=== PATIENT | male | born 1990 | race Caucasian/White ===

== ENCOUNTER 2017-08-05 12:05 | Emergency (ER) | payer MEDICAID ==
[~2017-08-05] VITALS: Ht 188 cm; Wt 85.9 kg
[2017-08-05 12:35] LABS: BASOPHILS % (AUTO) 0.4 % (0-1); EOSINOPHILS # (AUTO) 0.2 X10'3 (0-0.9); EOSINOPHILS % (AUTO) 2.2 % (0-6); HEMATOCRIT 47.9 % (42.0-52.0); HEMOGLOBIN 16.2 g/dl (14.0-17.9); LYMPHOCYTES # (AUTO) 3.1 X10'3 (1.1-4.8); LYMPHOCYTES % (AUTO) 30.9 % (21-51); MEAN CORPUSCULAR HEMOGLOBIN 28.8 PG (27.0-31.0); MEAN CORPUSCULAR HGB CONC 33.9 % (33.0-36.5); MEAN CORPUSCULAR VOLUME 84.9 FL (78-98); MEAN PLATELET VOLUME 7.4 FL (7.4-10.4); MONOCYTES # (AUTO) 0.6 X10'3 (0-0.9); NEUTROPHILS # (AUTO) 6.1 X10'3 (1.8-7.7); NEUTROPHILS % (AUTO) 60.5 % (42-75); PLATELET COUNT 278 X10'3 (140-440); RED BLOOD COUNT 5.65 X10'6 (4.70-6.10); RED CELL DISTRIBUTION WIDTH 12.9 % (11.5-14.5); WHITE BLOOD COUNT 10.1 X10'3 (4.5-11.0)
[2017-08-05 12:49] LABS: ALANINE AMINOTRANSFERASE 141 U/L (12-78); ALBUMIN 3.8 G/DL (3.4-5.0); ALKALINE PHOSPHATASE 126 IU/L (46-116); ANION GAP 5 (8-16); ASPARTATE AMINO TRANSFERASE 80 U/L (10-37); BILIRUBIN,TOTAL 0.5 MG/DL (0.1-1.0); BLOOD UREA NITROGEN 17 MG/DL (7-18); CALCIUM 9.3 MG/DL (8.5-10.1); CHLORIDE 104 MMOL/L (99-107); GLUCOSE 122 MG/DL (70-104); LIPASE 75 U/L (73-393); SODIUM 143 MMOL/L (135-145); TOTAL CARBON DIOXIDE 33.7 MMOL/L (24-32); TOTAL PROTEIN 7.7 G/DL (6.4-8.2); eGFR 89 ML/MIN
[2017-08-05 14:17] LABS: CLARITY,URINE CLEAR (Clear); COLOR,URINE YELLOW (Yellow); GLUCOSE, URINE NEGATIVE (Neg); KETONES,URINE TRACE mg/dl (Neg); LEUKOCYTE ESTERASE ,URINE NEGATIVE (Neg); NITRITES, URINE NEGATIVE (Neg); OCCULT BLOOD,URINE NEGATIVE (Neg); PROTEIN,URINE NEGATIVE (Neg)
[2017-08-05 14:21] LABS: UA COLLECTION TYPE CLN CATCH MIDSTREAM
[2017-08-05 14:56] VITALS: BP 125/69
== END 2017-08-05 14:58 | disposition home or self-care (01) ==
LOC: ER 12:05
DX: L02.416 Cutaneous abscess of left lower limb (principal); R10.9 Unspecified abdominal pain; B34.9 Viral infection, unspecified; R94.5 Abnormal results of liver function studies
CPT/HCPCS: 36415; 80053; 81003; 83690; 85025; 99284

== ENCOUNTER 2024-11-27 16:46 | Emergency (ER) | payer MEDICAID ==
[~2024-11-27] VITALS: Ht 188 cm; Wt 86.4 kg
[2024-11-27 16:50] VITALS: BP 127/82; PULSE 96; RESP 18; TEMP 97.8; O2SAT 98
--- NOTE | 2024-11-27 17:06 | Physician Documentation ---
History of Present Illness ~ Chief Complaint: Foreign body Stated Complaint: MED CLEARANCE Time Seen by MD: 16:50 Primary Medical Doctor: [facility] HPI 34-year-old male presents to the ED via [facility] for concerns over potential foreign body in the rectal area. [facility] indicates that during their scan they made note of an unknown object while aproximally the size of a walnut. Denies having any drugs or any other objects in his rectum Day of Onset: November 27, 2024 Medication Reconciliation Allergies: Coded Allergies: tramadol (Unverified Allergy, Unknown, 11/27/24) Past Medical History Past Medical History: MRSA Abscess Past Surgical History: noncontributory Alcohol Use: None Lives In: Home Review of Systems All Other Systems at this time: Reviewed and Negative ROS As stated above in the HPI, otherwise all systems are reviewed and negative. Physical Exam Vital Signs: Temperature: 97.8, Source: Temporal, Heart Rate: 96, Respiratory Rate: 18, BP: 127/82, Pulse Oximetry: 98, Weight: 86.360 Physical Exam General: Alert, no apparent distress. Respiratory: Lungs clear, no respiratory distress. Cardiovascular: Regular rate and rhythm, no murmurs. Gastrointestinal: Soft, nontender, nondistended. Bowels sounds present. Neurologic: Oriented x4. Psychiatric: Normal mood and affect. Skin: Normal color, warm and dry. No edema, no ecchymosis. Progress Results/Orders Results/Orders Orders - ARIAN BRENNER NP Ct Abdomen Pelvis (11/27/24 17:05) Completed Orders - ARIAN BRENNER NP Ct Abdomen Pelvis (11/27/24 17:05) Vital Signs 11/27/24 16:50 Temp 97.8 Pulse 96 Resp 18 B/P (MAP) 127/82 Pulse Ox 98 Medical Decision Making Findings no evidence of foreign body in CT. Safe to discharge at this time. patient is medically cleared for fdc Departure Disposition: HOME / SELF CARE / HOMELESS Impression: Primary Impression: General medical exam Additional Instructions: Medically cleared for fdc. Evaluated for foreign body in the rectal vault there was no evidence of any foreign bodies Referrals: NO PRIMARY CARE PROVIDER (PCP) Education Educated: Patient Educated regarding: diagnosis Signature Scribe Signature: t Attestation: The note accurately reflects work and decisions made by me.Arian Thomas NP 23:52 ARIAN BRENNER NP November 27, 2024 17:06
--- NOTE | 2024-11-27 17:27 | RADIOLOGY REPORT ---
Exam: CT CT ABDOMEN PELVIS History: FB Comparison Study: None TECHNIQUE: Multidetector CT of the abdomen and pelvis without IV contrast. Axial, coronal and sagitta l multiplanar reformats were obtained from the axial data set by the technologist. Radiation Dose Information: CT Dose: CTDI volume is 17.5 mGy. Dose-length product is 972.15 mGy*cm FINDINGS: The lung bases are clear. Partially visualized heart is unremarkable. Liver, spleen, gallbladder, pancreas and adrenal glands unremarkable. Punctate nonobstructing bilateral renal calculi.. No hydro nephrosis bilaterally. Bilateral ureters a nd urinary bladder unremarkable. Prostate is unremarkable. Stomach is unremarkable. Small bowel loops unremarkable. Retrocecal appendix is visualized measuring up to 7 mm with mild adjacent fat stranding. Moderate to amount of fecal material within the colon. No evidence of intraperitoneal free air or free fluid. No evidence of aortic aneurysm. Slightly prominent right lower abdominal quadrant lymph nodes measuring up to 0.8 cm which may be janes ctive. Minimal pelvic and hip body wall edema. Sclerotic focus of the left femoral head and left iliac bone which may represent bone islands blastic lesions not excluded. IMPRESSION: No obvious foreign body is visualized. Appendix is retrocecal measuring up to 7 mm with minimal adjacent fat stranding. Correlate for possib le acute appendicitis. Moderate to large amount of fecal material within the colon.
== END 2024-11-27 17:57 | disposition home or self-care (01) ==
LOC: ER 16:47
DX: Z02.89 Encounter for other administrative examinations (principal); Z88.5 Allergy status to narcotic agent
CPT/HCPCS: 74176; 99284

== ENCOUNTER → 2025-03-22 | Emergency (ER) | payer MEDICAID ==
[~2025-03-22] VITALS: Ht 185.4 cm; Wt 100.0 kg
[~2025-03-22] MED LIST: SULF1TAB45 PO
[2025-03-22 21:31] VITALS: BP 125/84; PULSE 89; RESP 16; O2SAT 96
--- NOTE | 2025-03-22 22:42 | Physician Documentation ---
History of Present Illness ~ Chief Complaint: Wound Stated Complaint: INFECTION ON STOMACH Time Seen by MD: 22:37 Primary Medical Doctor: [facility] HPI 35-year-old male presents to the ED after developing some small wounds on his abdomen. Patient has a known drug user including both fentanyl and methamphetamine.. States he has been picking at the area trying to get pus out of the swollen areas on his abdomen. Has any fevers nausea or vomiting. Endorses a regular recreational drug use Day of Onset of Wound: Mar 22, 2025 Tetanus within 5 years?: No Medication Reconciliation Allergies: Coded Allergies: tramadol (Unverified Allergy, Unknown, 03/22/25) Scheduled Sulfamethoxazole/Trimethoprim (Septra Ds Tab), 1 TAB PO Q12H Past Medical History Past Medical History: MRSA Abscess Past Surgical History: noncontributory Alcohol Use: None Lives In: Home Review of Systems All Other Systems at this time: Reviewed and Negative ROS As stated above in the HPI, otherwise all systems are reviewed and negative. Physical Exam Vital Signs: Temperature: 97.3, Source: Temporal, Heart Rate: 89, Respiratory Rate: 16, BP: 125/84, Pulse Oximetry: 96, Weight: 100.000 Oxygen Flow Rate: 0 Physical Exam General: Alert, no apparent distress. Neurologic: Oriented x4. Psychiatric: Normal mood and affect. Skin: (3) 2-3 cm size erythematous regions on abdomen. Some purulent discharge, no areas of fluctuance Progress Results/Orders Results/Orders Completed Orders - ARIAN BRENNER [employer] Sulfamethox/Trimetho. Ds Tab ( Ds (03/22/25 22:45) Medications Received in ER Medications (Trade) Dose Ordered Sig/Yue Route PRN Reason Start Time Stop Time Status Last Admin Dose Admin (Septra DS tab) 1 tab ONCE ONCE PO 03/22/25 22:45 03/22/25 22:46 DC 03/22/25 22:47 1 TAB Vital Signs 03/22/25 03/22/25 21:31 22:56 Temp 97.3 97.3 Pulse 89 Resp 16 B/P (MAP) 125/84 Pulse Ox 96 O2 Flow Rate 0 Medical Decision Making Findings Treat this patient empirically for what appears to be cellulitis with some minor purulent discharge. No areas of fluctuance therefore chose not to I and D at this time.. Place him on oral antibiotics Differential Dx:Considerations: Include: Abscess, Cellulitis, Dressing change, Healing wound, Other Departure Disposition: 01 HOME / SELF CARE / HOMELESS Impression: Primary Impression: Wound cellulitis Condition: Stable Discharge Instructions: Skin Abscess Prescriptions Sulfamethoxazole/Trimethoprim (Septra Ds Tab) 800 Mg/160 Mg Tablet 1 TAB PO Q12H for 10 Days, #20 TAB Prov: ARIAN BRENNER [employer] 03/22/25 Education Educated: Patient Educated regarding: diagnosis Signature Scribe Signature: c Attestation: Scribed for Arian Brenner [employer]oth Doffer by Arian Brenner - JESSICA . 03/22/25 23:06 ARIAN BRENNER NP Mar 22, 2025 22:42
[2025-03-22] MEDS: sulfamethoxazole/trimethoprim DS (800/160mg) tablet PO ONE (22:47)
[2025-03-22 22:56] VITALS: TEMP 97.3
== END | disposition home or self-care (01) ==
LOC: ER 21:23
DX: L03.311 Cellulitis of abdominal wall (principal); Z88.5 Allergy status to narcotic agent; Z86.14 Personal history of Methicillin resistant Staphylococcus aureus infection; Z79.899 Other long term (current) drug therapy
CPT/HCPCS: 99283

== ENCOUNTER 2025-04-10 12:04 | Emergency (ER) | payer MEDICAID ==
[~2025-04-10] VITALS: Ht 188 cm; Wt 91.8 kg
[2025-04-10 12:27] VITALS: BP 129/84; PULSE 90; RESP 18; TEMP 97.7; O2SAT 98
[2025-04-10] MEDS: LIDOcaine 1% W/epiNEPHrine 1:100,000 20ml vial IJ ONE (12:54)
[2025-04-10] MEDS: TETanus/Pertussis (Acell)/Diphther VAC/PF (Tdap-Adult) 0.5ml syringe IMVAC ONE (12:54)
[2025-04-10] MEDS ORDERED: SULF1TAB49 PO (12:55)
--- NOTE | 2025-04-10 12:56 | Physician Documentation ---
History of Present Illness ~ Chief Complaint: Abscess Stated Complaint: ABSESS Time Seen by MD: 12:36 Primary Medical Doctor: [facility] HPI 35-year-old male with a history of MRSA who presents for a right lower abdominal abscess. He reports this has been draining over the last few days. He otherwise reports he feels well, does not have any chills or fever, flu-like symptoms. Tetanus Within 5 Years: No Medication Reconciliation Allergies: Coded Allergies: tramadol (Unverified Allergy, Unknown, 04/10/25) Scheduled Sulfamethoxazole/Trimethoprim (Bactrim Ds Tablet), 1 TAB PO Q12H Past Medical History Past Medical History: MRSA Abscess Past Surgical History: noncontributory Alcohol Use: None Lives In: Home Review of Systems ROS As stated above in the HPI, otherwise all systems are reviewed and negative. Physical Exam Vital Signs: Temperature: 97.7, Source: Temporal, Heart Rate: 90, Respiratory Rate: 18, BP: 129/84, Pulse Oximetry: 98, Weight: 91.820 Physical Exam General: Alert, no apparent distress. Neck: Full range of motion. Respiratory: Lungs clear, no respiratory distress. Chest: No accessory muscle use. Cardiovascular: Regular rate and rhythm, no murmurs. Gastrointestinal: Soft, nontender, nondistended. Bowels sounds present. Extremities: Normal range of motion, no deformity. Neurologic: Oriented x4. Psychiatric: Normal mood and affect. Skin: Normal color, warm and dry. No edema, no ecchymosis. 1 cm erythematous abscess area right abdomen, draining. No significant fluid collection to be drained. Progress Results/Orders Results/Orders Orders - KIMBERLY MILTON NP Cult (Aer) Routine C&S+Gram St (04/10/25 12:41) Dressing Orders (04/10/25 12:41) Laceration/I&D Tray Set Up (04/10/25 12:41) Wound Care Orders (04/10/25 12:41) Completed Orders - KIMBERLY MILTON NP Lidocaine 1% W/Epi 1:100,000 (Xylocaine (04/10/25 12:45) Tetanus/Pertuss/Diph Acell/Pf (Boostrix (04/10/25 12:45) Vital Signs 04/10/25 12:27 Temp 97.7 Pulse 90 Resp 18 B/P (MAP) 129/84 Pulse Ox 98 Medical Decision Making Differential Dx:Considerations: Include: Abscess, Bacteremia, Cellulitis, Erysipelas, Felon, Gas gangrene, Hidrademitis suppurativa, Impetigo, Lymphangitis, Osteromyelitis, Paronychia, Septicemia Departure Time of Disposition: 12:54 Disposition: 01 HOME / SELF CARE / HOMELESS Impression: Primary Impression: Abscess Condition: Stable Discharge Instructions: Skin Abscess, [id number] Additional Instructions: Please compresses to the area 4 times a day for 15 minutes or more often as able. Take the antibiotics as prescribed. Return if worse. Departure Forms: Excuse form Work or School Excused From: Work Excuse beginning now through the following date: Apr 13, 2025 Referrals: NO PRIMARY CARE PROVIDER (PCP) Prescriptions Sulfamethoxazole/Trimethoprim (Bactrim Ds Tablet) 800 Mg-160 Mg Tablet 1 TAB PO Q12H for 7 Days, #14 TAB Prov: KIMBERLY MILTON NP 04/10/25 Education Educated: Patient Educated regarding: diagnosis, treatment, prognosis, need for follow up Signature Scribe Signature: x Attestation: The note accurately reflects work and decisions made by me.Kimberly Thomas NP 04/10/25 13:04 KIMBERLY MILTON NP Apr 10, 2025 12:56
== END 2025-04-10 13:21 | disposition home or self-care (01) ==
LOC: ER 12:05
DX: L02.211 Cutaneous abscess of abdominal wall (principal); Z88.5 Allergy status to narcotic agent
CPT/HCPCS: 99283

== ENCOUNTER 2025-04-25 22:57 | Emergency (ER) | payer MEDICAID ==
[~2025-04-25] VITALS: Ht 185.4 cm; Wt 90.9 kg
[2025-04-25 23:01] VITALS: BP 124/77; PULSE 86; RESP 16; TEMP 97.8; O2SAT 97
[2025-04-25] MEDS ORDERED: DOXY100C43 PO (23:25)
[2025-04-25] MEDS ORDERED: CEPH-585 PO (23:26)
--- NOTE | 2025-04-25 23:26 | Physician Documentation ---
History of Present Illness ~ Chief Complaint: Rash Stated Complaint: BUMPS ABDOMINAL AREA Time Seen by MD: 23:24 Primary Medical Doctor: [facility] HPI Scattered unresolved abdominal lesions consistent with staff. No reported fever, no reported nausea or vomiting or diarrhea. Known contact with partner who has the same. No obvious blisters, bullae or erythema. No other ill contacts, recent travels, antibiotic use or hospitalizations. Medication Reconciliation Allergies: Coded Allergies: No Known Allergies (Unverified , 04/25/25) Scheduled Cephalexin*Monohydrate* (Keflex*), 1 CAP PO TID Doxycycline Monohydrate (Doxycycline Monohydrate), 100 MG PO BID Past Medical History Past Medical History: MRSA Abscess Past Surgical History: noncontributory Alcohol Use: None Lives In: Home Review of Systems All Other Systems at this time: Reviewed and Negative Integumentary: Reports: rash Allergic/Immunologic: Reports: frequent infections; Denies: itching Physical Exam Vital Signs: RN Vital Signs have been reviewed: Yes, Temperature: 97.8, Source: Temporal, Heart Rate: 86, Respiratory Rate: 16, BP: 124/77, Pulse Oximetry: 97, Weight: 90.900 General Appearance: alert, WD/WN, no apparent distress Eyes, Ears: PERRL/EOMI Respiratory: no respiratory distress Cardiovascular: regular rate, rhythm Gastrointestinal: non-tender Extremities: normal range of motion Skin: warm/dry Skin Scattered encrusted lesions to the abdomen and a mild erythemic base Neurologic: oriented x4 Psychiatric: normal mood/affect Progress Results/Orders Results/Orders Vital Signs 04/25/25 23:01 Temp 97.8 Pulse 86 Resp 16 B/P (MAP) 124/77 Pulse Ox 97 Medical Decision Making Additional information obtaine: N/A Findings Examination history consistent with superficial staph infection without abscesses or bullae needing consideration for incision drainage. Can overlook or exclude parasitosis. Safely discharged in the emergency department with outpatient antibiotic Rx. Differential Dx:Considerations: Include: Abscess, Impetigo, Pediculosis, Viral exanthema Departure Disposition: HOME / SELF CARE / HOMELESS Impression: Primary Impression: Infection of skin and subcutaneous tissue Condition: Improved Discharge Instructions: Cellulitis, Adult, [id number] Additional Instructions: Please begin antibiotics as directed and make follow up appointment with the primary care Physician. Referrals: NO PRIMARY CARE PROVIDER (PCP) Prescriptions Cephalexin*Monohydrate* (Keflex*) 500 Mg Capsule 1 CAP PO TID, #30 CAP Prov: DAKOTA LEWIS PAC 04/25/25 Doxycycline Monohydrate (Doxycycline Monohydrate) 100 Mg Capsule 100 MG PO BID, #20 CAP may sub doxycycline hyclate or azithromycin z-pack as prescribed Prov: DAKOTA LEWIS PAC 04/25/25 Education Educated: Patient Educated regarding: diagnosis, treatment, prognosis, need for follow up Signature Scribe Signature: . Attestation: . DAKOTA LEWIS PAC Apr 25, 2025 23:26
== END 2025-04-25 23:43 | disposition home or self-care (01) ==
LOC: ER 22:58
DX: L08.9 Local infection of the skin and subcutaneous tissue, unspecified (principal); Z86.14 Personal history of Methicillin resistant Staphylococcus aureus infection
CPT/HCPCS: 99283